=== PATIENT | male | born 1960 | race Caucasian/White ===

== ENCOUNTER 2018-06-25 07:26 | Emergency (ER) | payer OTHER ==
[~2018-06-25] VITALS: Ht 180.3 cm; Wt 95.5 kg
--- NOTE | 2018-06-25 07:34 | NUR ---
58 Y/O MALE BIB AMBULANCE WITH C/O SYNCOPE. PER REPORT PT WAS FOUND ON BATHROOM FLOOR FROM THIS MORNING. PER PT "I GOT UP TO PEE. I GOT LIGHT HEADED AND DIZZY THEN I WOKE UP ON THE BATHROOM FLOOR. I TOOK TWO TRAZODONE ABOUT 0230. 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 NO C/O V/D, CP, SOB. PIV ESTABLISHED BY EMS. 4MG [employer]IV[employer] COORDINATOR. FSBS FOR EMS 189
[2018-06-25] MEDS ORDERED: SODIUM CHLORIDE 0.9% 1,000 ML IV ONE (07:36)
[2018-06-25] MEDS ORDERED: MECLIZINE CHEWABLE 25 MG TAB ONE (07:51)
[2018-06-25] MEDS ORDERED: SODIUM CHLORIDE FLUSH 10ML SYR IVF ONE (08:00)
[2018-06-25] MEDS ORDERED: SODIUM CHLORIDE 0.9% 1,000ML IVBOLUS ONE (08:00)
[2018-06-25] MEDS ORDERED: MECLIZINE CHEWABLE 25 MG TAB PO ONE (08:00)
[2018-06-25] MEDS ORDERED: PLEASE ENTER ALLERGIES MC SCH (08:00)
--- NOTE | 2018-06-25 08:03 | NUR ---
PT TO IMAGING
[2018-06-25 08:04] LABS: BASOPHILS # (AUTO) 0.08 x10^3/uL (0-0.1); BASOPHILS % (AUTO) 1 % (0-1); EOSINOPHILS # (AUTO) 0.14 x10^3/uL (0-0.4); EOSINOPHILS % (AUTO) 1 % (1-7); LYMPHOCYTES # (AUTO) 1.82 x10^3/uL (1-3.4); LYMPHOCYTES % (AUTO) 18 % (22-44); MD NO; MEAN CORPUSCULAR HEMOGLOBIN 29.8 pg (27.5-34.5); MEAN CORPUSCULAR HGB CONC 33.9 g/dL (33.2-36.2); MEAN PLATELET VOLUME 10.1 fL (7.4-10.4); MONOCYTES % (AUTO) 6 % (2-9); NEUTROPHILS # (AUTO) 7.61 x10^3/uL (1.8-6.8); NEUTROPHILS % (AUTO) 74 % (42-75); PLATELET COUNT 234 x10^3/uL (130-400); RED BLOOD COUNT 4.64 x10^6/uL (4.38-5.82); RED CELL DISTRIBUTION WIDTH 13.2 % (9.4-14.8)
[2018-06-25 08:11] LABS: ALANINE AMINOTRANSFERASE 27 U/L (12-78); ALBUMIN 3.4 g/dL (3.4-5.0); ANION GAP 10 mmol/L (5-15); CALCIUM 8.6 mg/dL (8.5-10.1); CHLORIDE 108 mmol/L (98-107)
[2018-06-25 08:15] LABS: ALKALINE PHOSPHATASE 78 U/L (45-117); BILIRUBIN,TOTAL 0.3 mg/dL (0.2-1.0); TROPONIN I < 0.015 ng/mL (0.000-0.045)
--- NOTE | 2018-06-25 08:25 | NUR ---
PT BACK FROM IMAGING. PT RESTING ON GURNEY . NO ACUTE DISTRESS NOTED. NO NEEDS REQUESTED AT THIS TIME.
--- NOTE | 2018-06-25 10:17 | NUR ---
PT RESTING ON GURNEY. PT STATES "THOSE FLUIDS MADE ME FEEL A LOT BETTER. I WAS STILL A LITTLE SHAKY." PT BEDSIDE. PT MUCH MORE ALERT. NO ACUTE DISTRESS NOTED. NO NEEDS REQUESTED AT THIS TIME. WILL ADMINISTER IVF AND REASSESS.
--- NOTE | 2018-06-25 10:18 | NUR ---
LATE ENTRY FOR 929. PT RESTING ON GURNEY. NO ACUTE DISTRESS NOTED. INTERMITTENTLY SLEEPING. WILL CONTINUE TO MONITOR.
--- NOTE | 2018-06-25 11:17 | NUR ---
PT STANDING WITH NO DISTRESS. PT STATES "I FEEL SO MUCH BETTER." NO ACUTE DISTRESS NOTED. NO NEEDS REQUESTED AT THIS TIME. PT ABLE TO AMBULATE WITH NO COMPLICATIONS.
[2018-06-25 11:19] VITALS: BP 109/74
--- NOTE | 2018-06-25 11:57 | NUR ---
PT AMBULATORY WITH STEADY GAIT TO BATHROOM. NO ACUTE DISTRESS NOTED.
--- NOTE | 2018-06-25 12:11 | NUR ---
Patient/Caregiver given discharge instructions and they have confirmed that they understand the instructions. Patient ambulatory with steady gait. PT LEFT WITH ALL PERSONAL BELONGINGS.
== END 2018-06-25 12:13 | disposition home or self-care (01) ==
LOC: ED 08:51
DX: R55 Syncope and collapse (principal)
CPT/HCPCS: 36415; 70450; 71045; 80053; 84484; 85025; 93005; 96360; 96361; 99284; J7030